=== PATIENT | female | born 1995 | race Caucasian/White ===

== ENCOUNTER 2016-09-21 23:46 | Inpatient (IN) | payer OTHER ==
[~2016-09-21] VITALS: Ht 160 cm; Wt 97.4 kg
--- NOTE | ~2016-09-21 | WRIGHTHP ---
[place], [place] PATIENT HISTORY AND PHYSICAL EXAM NAME: CORETTA ARNETT UNIT #: [id number] ROOM: [id number] DOCTOR: ZHAO FERRELL DO BIRTHDATE: [birth year] DOS: 09/22/2016 PRIMARY CARE PHYSICIAN: None. The patient was seen and evaluated with the resident on 09/22/2016. Please see the resident's note for further details. ASSESSMENT: 1. Opiate dependence with acute withdrawal. 2. Benzodiazepine abuse. 3. IV heroin abuse. 4. Mild leukocytosis. 5. Mild hypokalemia. 6. Tobacco abuse. 7. Depression. 8. Anxiety. 9. Obesity. 10. Amphetamine abuse. PLAN: Continue medical stabilization with the current protocol. Continue supportive care. ZHAO FERRELL DO CM:HISPHYS:PATIENT HISTORY AND PHYSICAL EXAMINATION 1735 1850 ZHAO FERRELL DO 09/22/16 1849 interface
[2016-09-22 00:08] VITALS: BP 140/97
[2016-09-22 00:44] LABS: BASO # 0.1 10*3/uL (0.0-0.1); BASO % 0.5 % (0.0-1.0); EOS # 0.2 10*3/uL (0.0-0.4); EOS % 1.5 % (1.0-4.0); HEMATOCRIT 46.9 % (37.0-47.0); LYMPH # 4.9 10*3/uL (1.3-4.4); LYMPH % 34.3 % (27.0-41.0); MEAN CELL VOLUME 81.3 fl (81.0-99.0); MEAN CORPUSCULAR HGB 27.7 pg (27.0-31.0); MEAN CORPUSCULAR HGB CONC 34.1 g/dl (33.0-37.0); MEAN PLATELET VOLUME 9.4 fl (9.6-12.3); MONO # 0.9 10*3/uL (0.1-1.0); MONO % 6.3 % (3.0-9.0); NEUT # 8.2 10*3/uL (2.3-7.9); NEUT % 57.1 % (47.0-73.0); PLATELET COUNT AUTOMATED 434 10*3/uL (130-400); RED BLOOD COUNT 5.77 10*6/uL (4.10-5.10); RED CELL DISTRI WIDTH 13.2 % (0-14.5); WHITE BLOOD COUNT 14.3 10*3/uL (4.8-10.8)
[2016-09-22 01:00] LABS: ALBUMIN 4.3 gm/dl (3.1-4.5); ALKALINE PHOSPHATASE 86 U/L (45-117); BUN 9 mg/dl (7-24); CARBON DIOXIDE 27 mmol/L (21-32); CHLORIDE 100 mmol/L (98-107); EST GLOM FILT AFRICAN AMERICAN > 60 ml/min; GLUCOSE 99 mg/dL (65-99); POTASSIUM 3.1 mmol/L (3.5-5.1); SGOT/AST 20 IU/L (3-35); SGPT/ALT 24 U/L (12-78); SODIUM 139 mmol/L (136-145); TOTAL PROTEIN 9.6 gm/dL (6.4-8.2)
[2016-09-22 01:06] LABS: BILIRUBIN 1+ (NEGATIVE); BLOOD NEGATIVE (NEGATIVE); CLARITY SL CLOUDY (CLEAR); COLOR YELLOW (YELLOW); GLUCOSE NEGATIVE (NEGATIVE); KETONE NEGATIVE (NEGATIVE); LEUKO ESTERASE NEGATIVE (NEGATIVE); NITRITE NEGATIVE (NEGATIVE); PROTEIN TRACE (NEGATIVE)
[2016-09-22 01:13] LABS: BACTERIA 2+; EPITHELIAL CELLS 20-25; URINE REFLEX COMMENT YES (NO)
[2016-09-22 01:15] LABS: URINE AMPHETAMINES > 1000 (1000ng/ml); URINE BARBITURATES < 200 (200ng/ml); URINE COCAINE < 300 (300ng/ml)
[2016-09-22 01:57] VITALS: BP 139/94
[2016-09-22 08:00] VITALS: BP 102/60
[2016-09-22 12:00] VITALS: BP 135/88
[2016-09-22 16:00] VITALS: BP 127/79
[2016-09-22 20:00] VITALS: BP 124/74
[2016-09-23] VITALS: BP 115/59
[2016-09-23 05:58] LABS: HEMOGLOBIN 15.1 g/dl (12.0-16.0); RED BLOOD COUNT 5.43 10*6/uL (4.10-5.10); WHITE BLOOD COUNT 9.3 10*3/uL (4.8-10.8)
[2016-09-23 05:59] LABS: BASO # 0.1 10*3/uL (0.0-0.1); BASO % 1.2 % (0.0-1.0); EOS # 0.4 10*3/uL (0.0-0.4); EOS % 3.9 % (1.0-4.0); HEMATOCRIT 45.3 % (37.0-47.0); LYMPH # 4.6 10*3/uL (1.3-4.4); LYMPH % 48.9 % (27.0-41.0); MEAN CELL VOLUME 83.4 fl (81.0-99.0); MEAN CORPUSCULAR HGB 27.8 pg (27.0-31.0); MEAN CORPUSCULAR HGB CONC 33.3 g/dl (33.0-37.0); MEAN PLATELET VOLUME 9.7 fl (9.6-12.3); MONO # 0.6 10*3/uL (0.1-1.0); MONO % 6.2 % (3.0-9.0); NEUT # 3.7 10*3/uL (2.3-7.9); NEUT % 39.4 % (47.0-73.0); PLATELET COUNT AUTOMATED 345 10*3/uL (130-400); RED CELL DISTRI WIDTH 13.1 % (0-14.5)
[2016-09-23 06:13] LABS: BUN 13 mg/dl (7-24); CARBON DIOXIDE 28 mmol/L (21-32); CHLORIDE 105 mmol/L (98-107); EST GLOM FILT AFRICAN AMERICAN > 60 ml/min; GLUCOSE 89 mg/dL (65-99); POTASSIUM 3.9 mmol/L (3.5-5.1); SODIUM 141 mmol/L (136-145)
[2016-09-23 08:00] VITALS: BP 113/65
[2016-09-23 16:00] VITALS: BP 106/62
[2016-09-23 20:00] VITALS: BP 113/66
[2016-09-24] VITALS: BP 122/76
[2016-09-24 08:00] VITALS: BP 113/68
[2016-09-24 12:00] VITALS: BP 122/74
[2016-09-24 16:00] VITALS: BP 104/62
[2016-09-24 20:00] VITALS: BP 114/73
[2016-09-25] VITALS: BP 132/67
[2016-09-25 04:00] VITALS: BP 101/45
[2016-09-25] MEDS ORDERED: ROPINIROLE HYD0.5 MG PO (07:51)
[2016-09-25] MEDS ORDERED: TRAZODONE50 MG PO (07:51)
[2016-09-25] MEDS ORDERED: ATARAX,VISTARIL50 MG PO (07:51)
[2016-09-25 08:00] VITALS: BP 95/54
== END 2016-09-25 08:58 | disposition home or self-care (01) | DRG 897 ==
LOC: ED 23:46 → 4E 09-22 01:30
PROVIDERS: Internal Medicine Hospice and Palliative Medicine; Nurse Practitioner Family
DX: F11.23 Opioid dependence with withdrawal (principal); R65.10 Systemic inflammatory response syndrome (SIRS) of non-infectious origin without acute organ dysfunction; Z68.41 Body mass index [BMI] 40.0-44.9, adult; E66.01 Morbid (severe) obesity due to excess calories; Z93.6 Other artificial openings of urinary tract status; F13.239 Sedative, hypnotic or anxiolytic dependence with withdrawal, unspecified; D47.3 Essential (hemorrhagic) thrombocythemia; E87.6 Hypokalemia; F12.10 Cannabis abuse, uncomplicated; J02.9 Acute pharyngitis, unspecified; F15.10 Other stimulant abuse, uncomplicated; F41.1 Generalized anxiety disorder; F41.0 Panic disorder [episodic paroxysmal anxiety]; F32.9 Major depressive disorder, single episode, unspecified; F17.210 Nicotine dependence, cigarettes, uncomplicated; Z71.6 Tobacco abuse counseling; Z80.8 Family history of malignant neoplasm of other organs or systems; Z88.6 Allergy status to analgesic agent; Z83.3 Family history of diabetes mellitus